=== PATIENT | female | born 1995 | race Caucasian/White ===

== ENCOUNTER 2016-05-06 15:28 | Emergency (ER) | payer OTHER ==
[~2016-05-06] VITALS: Ht 180.3 cm; Wt 70.5 kg
[~2016-05-06 15:28] MED LIST: AMOXICILLIN 50500 MG PO; ATARAX 25MG25 MG/TAB PO; KLOR-CON M2020 MEQ PO; ORSYTHIA 0.02 M1 TAB PO; PREDNISONE20 MG PO; VIIBRYD20 MG PO; ZOFRAN ODT4 MG PO
[2016-05-06 15:43] VITALS: TEMP 98.3
[2016-05-06 16:39] LABS: BASO % 0.3 % (0.0-2.0); EOS # 0.6 (0.0-0.7); EOS % 9.2 % (0-4.0); GRAN # 4.3 (1.4-6.5); GRAN % 69.3 % (42.2-75.2); LYMPH # 0.8 (1.2-3.4); LYMPH % 13.6 % (20.0-51.0); MEAN CELL VOLUME 93 fl (80.0-100.0); MEAN CORPUSCULAR HGB CONC 33 g/dl (33.0-37.0); MEAN PLATELET VOLUME 11.5 fl (7.4-10.4); MONO # 0.5 (0.1-0.6); MONO % 7.4 % (1.7-9.3); PLATELET COUNT 141 K/mm3 (130-400); RED BLOOD COUNT 3.64 M/mm3 (4.10-5.30); REDCELL DISTRIBUTION WIDTH-CV 13.4 % (11.5-14.5); WHITE BLOOD COUNT 6.2 K/mm3 (4.8-10.8)
[2016-05-06 16:40] LABS: HEMOGLOBIN 11.3 g/dl (12.5-16.0); MEAN CORPUSCULAR HEMOGLOBIN 31 pg (27.0-31.0)
[2016-05-06 16:52] LABS: ADJUSTED CALCIUM 9.3 mg/dL (8.4-10.2); ALANINE AMINOTRANSFERASE 28 U/L (9-52); ALBUMIN 3.6 gm/dL (3.5-5.0); ALKALINE PHOSPHATASE 50 U/L (50-136); ANION GAP 8 mmol/L (7-16); BILIRUBIN,TOTAL 0.6 mg/dL (0.0-1.0); BLOOD UREA NITROGEN 5 mg/dL (7-17); C-REACTIVE PROTEIN 5.2 mg/dL (0.0-0.9); CARBON DIOXIDE 24 mmol/L (22-30); CHLORIDE 104 mmol/L (98-107); CREATININE, serum 0.66 mg/dL (0.52-1.25); GLUCOSE 106 mg/dL (74-106); LIPASE 44 U/L (23-300); SODIUM 136 mmol/L (137-145); TOTAL PROTEIN 6.4 gm/dL (6.4-8.2)
[2016-05-06 17:13] LABS: TROPONIN-I < 0.012 ng/mL (0.000-0.034)
[2016-05-06 17:24] VITALS: BP 110/66; PULSE 64
== END 2016-05-06 17:30 | disposition home or self-care (01) ==
LOC: COL.ER 15:28
PROVIDERS: Emergency Medicine
DX: R07.81 Pleurodynia (principal); J02.0 Streptococcal pharyngitis; R53.81 Other malaise
CPT/HCPCS: J7030

== ENCOUNTER 2016-10-10 02:39 | Emergency (ER) | payer OTHER ==
[~2016-10-10] VITALS: Ht 180.3 cm; Wt 70.5 kg
[2016-10-10 02:44] VITALS: BP 101/58; TEMP 97.5
[2016-10-10 03:55] VITALS: PULSE 91
== END 2016-10-10 03:55 | disposition home or self-care (01) ==
LOC: COL.ER 02:39
DX: S00.83XA Contusion of other part of head, initial encounter (principal); W51.XXXA Accidental striking against or bumped into by another person, initial encounter; Y92.89 Other specified places as the place of occurrence of the external cause